=== PATIENT | female | born 1985 | race Caucasian/White ===

== ENCOUNTER → 2018-04-23 09:44 | Outpatient (CLI) | payer BC, SELFPAY ==
--- NOTE | 2018-04-23 09:47 | XR_ITS ---
XR ankle RT min 3V HISTORY: Follow-up fracture ITS.REASON: FX OF RT ANKLE ORDERING PHYSICIAN: Maggie Bledsoe MD PATIENT AGE: 32 years Comparison: 04/12/2018 FINDINGS: The long metallic plate transfixing the oblique fracture of the distal fibula in anatomic alignment. This is fixated by multiple short threaded screws. There are 2 long threaded screws at the inferior extent of the fibula which traverse the fibula and extending through most of the transverse width of the distal tibia. There are 2 threaded screws transfixing the transverse medial malleolar fragment in anatomic alignment. The ankle mortise appears grossly normal. Is only minor diffuse soft tissue swelling noted. IMPRESSION: Satisfactory ORIF distal fibular and medial malleolar fracture dislocation the ankle joint
== END ==
PROVIDERS: PCP Internal Medicine Adolescent Medicine; Visit Provider Orthopaedic Surgery
DX: S82.841A Displaced bimalleolar fracture of right lower leg, initial encounter for closed fracture (principal)
CPT/HCPCS: 73610

== ENCOUNTER 2018-04-23 11:01 | Outpatient (RCR) | payer BC, SELFPAY | END 2018-04-23 11:05 | disposition home or self-care (01) | LOC: PT 11:01 | PROVIDERS: Visit Provider Orthopaedic Surgery | DX: S82.841A Displaced bimalleolar fracture of right lower leg, initial encounter for closed fracture (principal) | CPT/HCPCS: 97760 ==

== ENCOUNTER → 2018-05-14 12:30 | Outpatient (CLI) | payer BC, SELFPAY ==
--- NOTE | 2018-05-14 12:33 | XR_ITS ---
XR ankle RT min 3V Ordering Physician: Maggie Bledsoe MD Patient Age: 32 years: Female HISTORY: ITS.REASON: Rt ankle painfollow-up fracture dislocation ORIF TECHNIQUE: 3 view right ankle. COMPARISON : 04/23/2018 postoperative images. Follow-up fracture. FINDINGS There is been ORIF of the severe fracture/dislocation at ankle Distal fibular fracture fixation: Lung Metallic plate has been applied to the distal fibula secured by multiple screws. . Good position & alignment remains stable at the fibula. Only slight one cortical width anterior displacement at this spiral fracture distal fibular shaft . There are 2 longer screws which secure the metallic plate & continue into the distal tibia providing additional fixation here and at the interosseous region. Medial malleolus fracture fixation. Medial malleolar fragment is in good position, secured and transfixed by 2 long threaded screws are seen entering the medial malleolus. Stable position at the distal fibula Normal tibial talar relationships with smooth contour to the dome of talus with satisfactory relationships at the ankle mortise. IMPRESSION: Stable ORIF of distal fibular fracture and medial malleolar fracture.
== END ==
PROVIDERS: PCP Internal Medicine Adolescent Medicine; Visit Provider Orthopaedic Surgery
DX: S82.841A Displaced bimalleolar fracture of right lower leg, initial encounter for closed fracture (principal)
CPT/HCPCS: 73610

== ENCOUNTER → 2018-06-09 12:16 | Outpatient (CLI) | payer BC, SELFPAY ==
--- NOTE | 2018-06-09 12:20 | XR_ITS ---
XR ankle RT min 3V HISTORY: Follow-up ORIF/fracture ITS.REASON: sp ORIF RT ANKLE dos 04/12/18 ORDERING PHYSICIAN: Maggie Bledsoe MD PATIENT AGE: 32 years Comparison: 05/14/2018 FINDINGS: 3 views are obtained showing overall no significant change in the lateral bone plate stabilizing the distal fibular fracture with good alignment nondisplaced. There are 2 transverse screws extending from the fibular bone plate into the tibia distally. The ankle mortise is well preserved. 2 oblique screws are present through the medial malleoli region into the distal tibia stabilizing the fracture base of the medial malleolus with good alignment. IMPRESSION: Good alignment status post ORIF tib-fib fracture as described above not significantly changed
== END ==
PROVIDERS: PCP Internal Medicine Adolescent Medicine; Visit Provider Orthopaedic Surgery
DX: S82.841A Displaced bimalleolar fracture of right lower leg, initial encounter for closed fracture (principal); Z48.89 Encounter for other specified surgical aftercare
CPT/HCPCS: 73610

== ENCOUNTER → 2018-06-30 13:07 | Outpatient (CLI) | payer BC, SELFPAY ==
--- NOTE | 2018-06-30 13:12 | XR_ITS ---
XR ankle wt bearing RT min 3V HISTORY: Follow-up fracture/ORIF ITS.REASON: sp ORIF rt ankle ORDERING PHYSICIAN: Maggie Bledsoe MD PATIENT AGE: 32 years Comparison: 06/09/2018 FINDINGS: There remains good alignment status post ORIF fibular and medial malleoli fracture. Lateral bone plate of the distal fibula remains in place. Fracture line still visible. 2 screws remain within the medial malleoli region with persistent fracture line noted at the base of the medial malleolus. There may be good alignment. IMPRESSION: Overall no change status post ORIF distal tib-fib fracture with good alignment
== END ==
PROVIDERS: PCP Internal Medicine Adolescent Medicine; Visit Provider Orthopaedic Surgery
DX: S82.841A Displaced bimalleolar fracture of right lower leg, initial encounter for closed fracture (principal); Z48.89 Encounter for other specified surgical aftercare
CPT/HCPCS: 73610

== ENCOUNTER 2018-06-30 14:26 | Outpatient (RCR) | payer BC, SELFPAY | END 2018-06-30 14:35 | disposition home or self-care (01) | LOC: PT 14:26 | PROVIDERS: Visit Provider Orthopaedic Surgery | DX: S82.841A Displaced bimalleolar fracture of right lower leg, initial encounter for closed fracture (principal) | CPT/HCPCS: 97760 ==

== ENCOUNTER 2018-07-05 16:35 | Outpatient (RCR) | payer BC, SELFPAY ==
--- NOTE | 2018-07-05 17:50 | [facility].PTOPEV ---
PT Outpatient Evaluation Rehab PT Outpatient Evaluation Start: 07/05/18 17:43 Freq: Status: Active Protocol: Document 07/05/18 17:43 [place] (Rec: 07/05/18 17:50 [email or web address] [id number]) Electronically Signed By Sudheer Ellis, PT 07/05/18 17:43 Outpatient Therapy Subjective History Subjective History This is the initial Physical Therapy evaluation for Colby Arizmendi. Pt is a 32 y/o female referred to PT s/p fall and Fx of R ankle. Pt had tib/fib fx that was fixated w/ plates and screws, pt also had syndesmosis injury and screw placement. Pt rpeorts she was casted, then NWB in boot, then finally aloud to ambulate in boot. Pt rpeorts now she is FWB w/out boot but is supposed to use corset brace. Chief Complaint Stiff Symptom Type Other Symptoms Relieved By Activity Prior Functional Limitations None Current Functional Limitations Squatting Recreation Activity Level of pain today (0-10) 0 Pain scale - at its best (0-10) 0 Pain scale - at its worst (0-10) 0 Ankle/Foot Eval Gait Observation General Gait Pattern Observation Antalgic Gait Assistive Device Ambulation Assistive Device None Palpation Tenderness right Ankle/Foot Palpation Findings None/Normal ATF TTP negative PTF TTP negative CF TTP negative ROM Ankle/Foot Dorsiflexion w/Knee Extended 5 Active Range Motion (degrees) Ankle/Foot ROM Reason Not Measured Within Functional Limits MMT Ankle Dorsiflexion Strength Grade 4- Good- Ankle Plantarflexion Strength Grade 4- Good- Foot Eversion Strength Grade 4- Good- Foot Inversion Strength Grade 4- Good- Outpatient Therapy Assessment Impairments Problems/Impairmments Impaired Strength Impaired Squatting Impaired Recreational Activities Prognosis Rehab Potential Good Comment Pt given HEP and instructed to perform TID - pt to return for F/U Clinical Impression Consistent with Diagnosis Yes Short Term Goals Number of Weeks 2 Increase Range of Motion Yes Increase Strength Yes: 4+/5 Improve Gait Pattern without Assistive Yes Device Patient
== END 2018-07-05 16:40 | disposition home or self-care (01) ==
LOC: PT 16:35
PROVIDERS: Visit Provider Orthopaedic Surgery
DX: S82.841A Displaced bimalleolar fracture of right lower leg, initial encounter for closed fracture (principal)
CPT/HCPCS: 97163

== ENCOUNTER → 2018-08-12 13:43 | Outpatient (CLI) | payer BC, SELFPAY ==
--- NOTE | 2018-08-12 13:46 | XR_ITS ---
XR ankle wt bearing RT min 3V HISTORY: Follow-up ORIF right ankle ITS.REASON: s/p ORIF rt ankle 04/12/18 ORDERING PHYSICIAN: Maggie Bledsoe MD PATIENT AGE: 32 years Comparison: 06/30/2018 FINDINGS: Lateral bone plate remains present in the distal fibula. There is fracture of the 2 distal screws within the bone plate that traverses into the distal tibia. The screw fracture is in the tibial region. There is minimal inferior angulation of the lateral fracture fragments of the screws. There is minimal separation of the screw fracture fragments. The 2 oblique screws within the medial aspect of the distal tibia remain in place. There remains good bony alignment. IMPRESSION: There is fracture of the 2 distal screws traversing through the fibular bone plate into the distal tibia. There remains good alignment of the bony fragments and ankle mortise does not appear widened
== END ==
PROVIDERS: PCP Internal Medicine Adolescent Medicine; Visit Provider Orthopaedic Surgery
DX: Z48.89 Encounter for other specified surgical aftercare (principal)
CPT/HCPCS: 73610

== ENCOUNTER → 2018-09-07 13:58 | Outpatient (CLI) | payer BC, SELFPAY ==
--- NOTE | 2018-09-07 14:00 | CT_ITS ---
CT ankle RT wo con INDICATION: Right ankle pain and stiffness with popping, prior surgery ITS.REASON: ct ORDERING PHYSICIAN: Maggie Bledsoe MD PATIENT AGE: 32 years COMPARISON: 08/12/2018 TECHNIQUE: Axial images are obtained without contrast. Sagittal and coronal reformatted images are reviewed as well. All CT scans at the facility use one or more dose reduction, viz: automated exposure control, ma/kV adjustment per patient size (including targeted exams where dose is matched to indication, i.e. head), or iterative reconstruction technique. FINDINGS: Status post ORIF distal fibular fracture. There is a lateral bone plate present with multiple screws. The distal fibular shaft fracture line is still visible. There is some callus formation medially. There are 2 screws within the distal bone plate of the fibula extending into the tibia. There is fracture of the screws in the tibial region as described on the radiograph of 08/12/2018. There is a faint some of lucency noted around both of these screws at the fibula and into the lateral aspect of the tibia. There are 2 oblique screws within the medial malleoli region of the tibia extending into the distal tibial shaft. The medial malleoli fracture is healed. There is some soft tissue swelling in the subcutaneous region of the leg laterally and anteriorly. Subcutaneous edema is present within the ankle but posteriorly. IMPRESSION: 1. Prior ORIF distal tib-fib. There is good alignment. There is bone plate over the distal fibula with incomplete bony union of the fibular fracture. 2. Fracture of the 2 screws which extend into the distal tibia from the fibula with a faint zone of lucency around the lateral portion of the screws in the tibia and fibula which may be due to loosening 3. Generalized subcutaneous soft tissue swelling in the ankle and foot focal soft tissue swelling lateral to the fibula and anterior distal leg
== END ==
PROVIDERS: PCP Internal Medicine Adolescent Medicine; Visit Provider Orthopaedic Surgery
DX: S82.841A Displaced bimalleolar fracture of right lower leg, initial encounter for closed fracture (principal)
CPT/HCPCS: 73700

== ENCOUNTER → 2018-10-18 08:58 | Outpatient (CLI) | payer BC, SELFPAY ==
--- NOTE | 2018-10-18 09:07 | XR_ITS ---
XR ankle wt bearing RT min 3V HISTORY: ITS.REASON: ap, lateral mortise views ORDERING PHYSICIAN: Maggie Bledsoe MD PATIENT AGE: 32 years Comparison: 2018. FINDINGS: Orthopedic hardware is stable. The bone density, joint space and alignment are normal. There is no acute fracture. Impression: Stable exam. No significant change or acute process.
== END ==
PROVIDERS: PCP Internal Medicine Adolescent Medicine; Visit Provider Orthopaedic Surgery
DX: S82.841A Displaced bimalleolar fracture of right lower leg, initial encounter for closed fracture (principal)
CPT/HCPCS: 73610

== ENCOUNTER → 2020-02-15 15:33 | Outpatient (CLI) | payer BC, SELFPAY | PROVIDERS: PCP Internal Medicine Adolescent Medicine; Visit Provider Internal Medicine Adolescent Medicine | DX: Z03.818 Encounter for observation for suspected exposure to other biological agents ruled out (principal) | CPT/HCPCS: U0003 ==

== ENCOUNTER → 2022-05-30 13:55 | Outpatient (CLI) | payer BC, OTHER, SELFPAY ==
--- NOTE | 2022-05-30 14:01 | XR_ITS ---
FINAL REPORT CLINICAL HISTORY: rt ankle pain COMPARISON: 06/30/2018 FINDINGS: Right ankle Three views were obtained. There are postoperative changes in the tibia fibula. There is been partial removal of 2 screws since the prior. No new bony abnormality is identified. There are mild degenerative changes. IMPRESSION: Postsurgical changes as above. Reviewed, Interpreted and Dictated by Jim Davies III, MD Transcribed by Za Oconnor Authenticated and . [facility]
== END ==
PROVIDERS: PCP Internal Medicine Adolescent Medicine; Visit Provider Orthopaedic Surgery
DX: S82.841A Displaced bimalleolar fracture of right lower leg, initial encounter for closed fracture (principal)
CPT/HCPCS: 73610

== ENCOUNTER → 2022-06-10 10:47 | Outpatient (CLI) | payer BC, OTHER, SELFPAY ==
--- NOTE | 2022-06-10 10:48 | CT_ITS ---
FINAL REPORT TECHNIQUE: Thin section axial images were obtained through the right ankle without contrast. Reconstruction images were obtained from the axial data. Exam was performed using dose reduction technique. CLINICAL HISTORY: ankle injury, HX FX 4 YEARS AGO, PAIN COMPARISON: 09/07/2018 FINDINGS: CT RIGHT ANKLE WITHOUT CONTRAST There are postoperative changes from ORIF of the medial and lateral malleoli. There has been removal of a portion of 2 surgical screws in the distal tibia since the prior CT. There has been interval healing of the distal fibular fracture. The medial malleolar fracture is healed. There is no evidence of hardware complication. No new fracture is identified. Subtle irregularity of the talar dome is unchanged and is likely degenerative. Mild multi joint degenerative disease is present. There is been significant improvement in previously seen soft tissue edema. There is very mild medial edema remaining which may be new given reported history of interval trauma. Remaining soft tissues are without acute abnormality. IMPRESSION: 1. No acute osseous abnormality. Postoperative changes from ORIF of the medial and lateral malleolus. 2. Mild medial soft tissue edema, could be related to more recent trauma. Otherwise no acute soft tissue abnormality. Reviewed, Interpreted and Dictated by Lise Baird MD Transcribed by Jane Rubio Authenticated and [facility]
== END ==
PROVIDERS: PCP Internal Medicine Adolescent Medicine; Visit Provider Orthopaedic Surgery
DX: S82.841A Displaced bimalleolar fracture of right lower leg, initial encounter for closed fracture (principal)
CPT/HCPCS: 73700

== ENCOUNTER → 2022-07-02 12:52 | Outpatient (CLI) | payer BC, OTHER, SELFPAY ==
[2022-07-02 12:58] LABS: Microscopic, Urine URINE MICROSCOPIC (MICROSCOPIC)
[2022-07-02 13:40] LABS: Appearance,Urine CLEAR (Clear); Basophils # 0.1 K/mm3 (0-0.2); Basophils % 1.1 % (0.1-2.0); Bilirubin,Urine Negative (Negative); Blood, Urine 2+ (Negative); Color,Urine YELLOW (Yellow); Eosinophils # 0.2 K/mm3 (0.0-0.4); Eosinophils % 2.1 % (0.1-12.0); Glucose,Urine (UA) Negative (Negative); Hemoglobin 12.8 g/dL (12.2-16.2); Ketones,Urine Negative (Negative); Leukocyte Esterase,Urine TRACE (Negative); Lymphocytes % 33.5 % (10-50); Mean Corpuscular HGB Conc 32.9 g/dL (31.8-35.4); Mean Corpuscular Hemoglobin 29.1 pg (27.0-31.2); Mean Corpuscular Volume 88.5 fl (81-99); Mean Platelet Volume 7.5 fl (7.4-10.4); Monocytes # 0.4 K/mm3 (0.1-1.0); Monocytes % 4.2 % (1.7-9.3); Neutrophils # 5.3 K/mm3 (1.8-7.8); Neutrophils % 59.1 % (37.0-80.0); Nitrate,Urine Negative (Negative); Platelet Count 458 K/mm3 (142-424); Protein,Urine Negative (Negative); Red Blood Count 4.41 M/mm3 (4.20-5.40); Urobilinogen,Urine 0.2 EU/dl (0.2); White Blood Count 8.9 K/mm3 (4.8-10.8)
[2022-07-02 13:41] LABS: Urine Pregnancy, HCG Qual. Negative (Negative)
[2022-07-02 13:50] LABS: Bacteria,Urine Trace /lpf; Squamous Epithelial Cell,Urine Occasional #/hpf (0-5)
[2022-07-02 14:05] LABS: Chloride 101 mmol/L (98-107); Potassium 3.9 mmoL/L (3.5-5.1); Sodium 137 mmol/L (136-145)
[2022-07-02 14:08] LABS: Alanine Aminotransferase 42 U/L (12-78); Albumin Level 4.2 g/dl (3.5-5.0); Albumin/Globulin Ratio 1.6 (1.1-1.8); Alkaline Phosphatase 63 U/L (38-126); Anion Gap 13.9 mEq/L (5-15); Aspartate Amino Transferase 42 U/L (14-36); Bilirubin,Total 0.2 mg/dl (0.2-1.3); Blood Urea Nitrogen 14 mg/dl (7-17); Carbon Dioxide 26 mmol/L (22.0-30.0); Estimated Glomerular Filt Rate 94 ml/min (>60); GFR (African American) 113 ML/MIN (>60); Globulin 2.6 g/dL (1.3-3.2); Total Protein,Serum 6.8 g/dl (6.3-8.2)
[2022-07-02 14:09] LABS: Calcium 9.1 mg/dl (8.4-10.2); Glucose 128 mg/dl (74-100)
== END ==
PROVIDERS: PCP Internal Medicine Adolescent Medicine; Visit Provider Orthopaedic Surgery
DX: Z01.818 Encounter for other preprocedural examination (principal)
CPT/HCPCS: 36415; 80053; 81001; 81025; 85025

== ENCOUNTER → 2023-03-26 15:34 | Outpatient (CLI) | payer BC, OTHER, SELFPAY | PROVIDERS: PCP Physician Assistant; Visit Provider Physician Assistant | DX: G47.30 Sleep apnea, unspecified (principal); R06.83 Snoring | CPT/HCPCS: G0399 ==